=== PATIENT | female | born 2000 | race Caucasian/White ===

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

== ENCOUNTER 2018-04-03 22:04 | Emergency (ER) | payer OTHER ==
--- NOTE | 2018-04-03 22:17 | ED Physician Documentation ---
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 opt is p-0-g-1 edc of aug 03'. k sdhe drinks 3 sodas per day - no prev gu problems. rates pain as 8/10 Severity: moderate Location of Pain: flank pain - Vaginal Bleeding Care: Yes (w/c [facility]) - Associated Symptoms Urinary Symptoms: none. denies: blood in urine, frequent urination, discomfort w/ urination Discharge: denies: vaginal discharge, vaginal fluid leakage - ROS CONST: no problems GI/: denies: nausea, vomiting, decreased appetite CVS/RESP: none EYES/ENT: none NEURO/PSYCH: none MS/SKIN/LYMPH: none - PAST HX Past History: none Other History: denies: kidney stone(s) Surgeries/Procedures: tonsillectomy Allergies/Adverse Reactions: Allergies Allergy/AdvReac Type Severity Reaction Status Date / Time No Known Allergies Allergy Verified 04/03/18 22:25 Home Medications: Ambulatory Orders Medication Instructions Recorded NK [NK] 04/03/18 - SOCIAL HX Smoking History: non-smoker Alcohol Use: none Drug Use: none - FAMILY HX Family History: none - VITAL SIGNS Vital Signs: Vital Signs Temp Pulse Resp BP Pulse Ox 135/71 05/27/16 14:16 - REVIEWED ASSESSMENTS Nursing Assessment Reviewed: Yes Vitals Reviewed: Yes ED Results Lab/Radiology - Radiology Radiology Impressions: no rad dt preg but hematuria plus 3 w/ classic gu lith symptoms - Orders Orders: ED Orders Category Date Time Status UA [URINALYSIS] Routine Lab 04/03/18 Ordered Female Urogenital Problems - EXAM General Appearance: mild distress, moderate distress EENT: eye inspection normal Neck: nml inspection Respiratory: no resp. distress, breath sounds nml. No: respiratory distress CVS: reg rate & rhythm, heart sounds normal, equal pulses Abdomen: soft, non-tender, no distention. No: tenderness Back: non-tender, painless ROM. No: vertebral point-tendernes, CVA tenderness, muscle spasm Skin: color nml, no rash, warm,dry. No: cyanosis, diaphoresis, pallor, rash Extremities: non-tender, normal range of motion, no evidence of injury Neuro: oriented X3, CN's nml as tested, motor nml, sensation nml, mood/affect nml Discharge Clincal Impression: uterine , suspect gu lithiasis Referrals: Angus Win MD [Primary Care Provider] - 2 Days Comments: pt prefers pvt auto transfer-[facility] W/C accepting Condition: Good Disposition: 02 XFER SHT-TRM HOSP Decision to Admit: NO Decision Time: 23:15
[2018-04-03 23:47] VITALS: BP 126/61
== END 2018-04-03 23:30 | disposition short-term general hospital (02) ==
LOC: ED 22:04
DX: R31.9 Hematuria, unspecified (principal); R10.9 Unspecified abdominal pain; Z33.1 Pregnant state, incidental
CPT/HCPCS: 99285